=== PATIENT | male | born 1955 | race Caucasian/White ===

== ENCOUNTER 2020-06-08 16:50 | Emergency (ER) | payer BC, MEDICARE ==
[2020-06-08 17:03] VITALS: BP 128/67; PULSE 72
--- NOTE | 2020-06-08 17:16 | EDM.PDOC ---
ED HPI GENERAL MEDICAL PROBLEM - General Chief Complaint: Upper Extremity Injury/Pain Stated Complaint: NAIL IN RT HAND Time Seen by Provider: 06/08/20 17:05 Source of Information: Reports: Patient, Family History Limitations: Reports: No Limitations - History of Present Illness INITIAL COMMENTS - FREE TEXT/NARRATIVE: 64-year-old male had a puncture wound in the right palm yesterday with a small nail. He cleaned it, put some topical antibiotic on the hand, but overnight he developed a throbbing pain extending up the middle finger and even up the wrist partially. There is also swelling, but no fever or chills. No significant erythema. Onset: Gradual Duration: Hour(s): (The inflammation and pain has gradually worsened over the past 12 hours) Location: Reports: Upper Extremity, Right Associated Symptoms: Reports: No Other Symptoms Right Hand Pain Score (Numeric/FACES): 8 - Related Data Allergies Allergy/AdvReac Type Severity Reaction Status Date / Time No Known Allergies Allergy Verified 06/08/20 17:03 Home Meds: Home Meds Pantoprazole Sodium 40 mg PO DAILY 02/02/14 [History] Verapamil HCl [Verapamil Sr] 180 mg PO DAILY 02/02/14 [History] Sucralfate [Carafate] 1 gm PO ASDIRECTED 12/15/15 [History] Naproxen [Naprosyn] 500 mg PO BID 05/02/18 [History] Past Medical History HEENT History: Reports: Impaired Vision Other HEENT History: sinus pasty Cardiovascular History: Reports: None Respiratory History: Reports: None Gastrointestinal History: Reports: GERD Genitourinary History: Reports: None Musculoskeletal History: Reports: Other (See Below) Other Musculoskeletal History: bilateral hip pain Neurological History: Reports: Migraines Psychiatric History: Reports: None Endocrine/Metabolic History: Reports: None Hematologic History: Reports: None Immunologic History: Reports: None Oncologic (Cancer) History: Reports: None Dermatologic History: Reports: Other (See Below) Other Dermatologic History: laceration L leg today chainsaw - Infectious Disease History Infectious Disease History: Reports: Chicken Pox, MRSA - Past Surgical History Head Surgeries/Procedures: Reports: None HEENT Surgical History: Reports: None Cardiovascular Surgical History: Reports: None GI Surgical History: Reports: Hernia, Abdominal Neurological Surgical History: Reports: None Musculoskeletal Surgical History: Reports: Hip Replacement, Shoulder Surgery Other Musculoskeletal Surgeries/Procedures:: r ankle tiera 2011. left hip replacement 2014. LT RCR 07/05/18 Dermatological Surgical History: Reports: None Social & Family History - Tobacco Use Tobacco Use Status *Q: Never Tobacco User - Caffeine Use Caffeine Use: Reports: Coffee - Recreational Drug Use Recreational Drug Use: No - Living Situation & Occupation Living situation: Reports: , with Spouse Occupation: Employed Review of Systems - Review of Systems Review Of Systems: See Below Constitutional: Denies: Fever Respiratory: Denies: Shortness of Breath Skin: Denies: Erythema Neurological: Denies: Paresthesia ED EXAM, GENERAL - Physical Exam Exam: See Below Exam Limited By: No Limitations General Appearance: Alert, No Apparent Distress Respiratory/Chest: No Respiratory Distress Extremities: Other (Exam is otherwise limited to the right hand. There is a tiny dry puncture wound in the center of the palm at the base of the middle finger. There is some moderate swelling around the wound extending along the palmar surface of the middle finger but no erythema or fluctuance, no warmth.) Course - Vital Signs Last Recorded V/S: Last Vital Signs Temp 98.0 F 06/08/20 17:01 Pulse 72 06/08/20 17:01 Resp 16 06/08/20 17:01 BP 128/67 06/08/20 17:01 Pulse Ox 96 06/08/20 17:01 - Re-Assessments/Exams Free Text/Narrative Re-Assessment/Exam: 06/08/20 17:15 Patient will be covered with Augmentin 875 mg twice daily for at least 7 days, increase activity with the head as tolerated and recheck in 2 to 3 days if not improving significantly. Continue with anti-inflammatories as needed for pain. Departure - Departure Time of Disposition: 17:17 Disposition: Home, Self-Care 01 Clinical Impression: Cellulitis of hand, right - Discharge Information Instructions: Cellulitis, Adult Referrals: Damian Escalante MD [Primary Care Provider] - Forms: ED Department Discharge Care Plan Goals: Take 1 dose of Augmentin twice daily for at least 7 days, increase activity with the right hand as tolerated and consider rechecking in 2 to 3 days if not improving significantly. Return sooner if worsening such as increased swelling, redness, warmth or fever. Sepsis Event Note (ED) - Evaluation Sepsis Screening Result: No Definite Risk
== END 2020-06-08 17:21 | disposition home or self-care (01) ==
LOC: JP.ED 16:50
DX: L03.113 Cellulitis of right upper limb (principal); K21.9 Gastro-esophageal reflux disease without esophagitis; Z79.899 Other long term (current) drug therapy
CPT/HCPCS: 99283

== ENCOUNTER 2021-01-01 08:30 | Day surgery (SDC) | payer BC ==
[~2021-01-01 08:30] MED LIST: Midazolam 1 MG/ML 2 ML SDV ONE; Propofol 200 MG/20 ML SDV ONE; fentaNYL 100 MCG/2 ML SDV ONE
[2021-01-01] MEDS: Sodium Chloride 0.9% 1,000 ML IV SCH (09:32)
[2021-01-01 11:55] VITALS: BP 111/60; PULSE 64
--- NOTE | 2021-01-02 08:24 | OR ---
DATE OF PROCEDURE: 01/01/2021 SURGEON: Fox Tuttle MD PROCEDURES: 1. Esophagogastroduodenoscopy. 2. Colonoscopy. FINDINGS: 1. Mild inflammation at the GE junction concerning for reflux disease (biopsied using cold biopsy forceps). 2. Poor colon prep. COMPLICATIONS: None. COMPENSATION ASSOCIATE: None. ANESTHESIA: MAC. PREOPERATIVE DIAGNOSES: 1. History of George's esophagus. 2. Screening colonoscopy. POSTOPERATIVE DIAGNOSES: 1. History of George's esophagus. 2. Screening colonoscopy. RISKS: Risks, benefits, alternatives, and limitations including, but not limited to infection, bleeding, perforation, false positives and false negatives were explained to the patient and he wished to proceed. PROCEDURE IN DETAIL: The patient was placed in left lateral decubitus position. The EGD scope was introduced and advanced atraumatically to the second part of the duodenum. No evidence of duodenitis or ulceration. Within the stomach itself, there was no evidence of gastritis. At the GE junction, there was mild inflammation concerning for reflux disease. This was biopsied in all 4 quadrants using cold biopsy forceps. Remainder of the esophagus was inspected without abnormality. Digital rectal exam was performed next. The scope was introduced and advanced atraumatically to the ileocecal valve. The scope was brought back to the ascending, transverse, descending colon, and retroflexed, but there was a large amount of solid and liquid stool. The mucosal surface that could be seen would be less than 40%, thus precluding an adequate visualization. No abnormalities on retroflexion. The patient tolerated the procedure well. The patient will be scheduled for repeat colonoscopy. Fox Tuttle MD /[id number]
== END 2021-01-01 12:00 | disposition home or self-care (01) ==
LOC: JP.SDS 08:30
PROVIDERS: ATTEND Surgery
DX: Z12.11 Encounter for screening for malignant neoplasm of colon (principal); K21.9 Gastro-esophageal reflux disease without esophagitis; G47.33 Obstructive sleep apnea (adult) (pediatric); I25.2 Old myocardial infarction
CPT/HCPCS: 88305; J2250; J2704; J3010; J7030

== ENCOUNTER 2021-01-05 06:56 | Day surgery (SDC) | payer BC ==
[2021-01-05] MEDS ORDERED: Propofol 200 MG/20 ML SDV ONE (07:23)
[2021-01-05] MEDS ORDERED: fentaNYL 100 MCG/2 ML SDV ONE (07:23)
[2021-01-05] MEDS ORDERED: Midazolam 1 MG/ML 2 ML SDV ONE (07:23)
[2021-01-05] MEDS ORDERED: Sodium Chloride 0.9% 1,000 ML IV SCH (07:30)
[2021-01-05 09:35] VITALS: BP 123/58; PULSE 65
--- NOTE | 2021-01-05 11:11 | OR ---
DATE OF PROCEDURE: 01/05/2021 SURGEON: Fox Tuttle MD PROCEDURE: Colonoscopy. FINDINGS: Poor colon prep. COMPLICATIONS: None. RACE RELATIONS ADVISER: None. RISKS: Risks, benefits, alternatives, and limitations including, but not limited to infection, bleeding, perforation, false positives, false negatives were explained to the patient and he wished to proceed. PROCEDURE IN DETAIL: The patient was placed in left lateral decubitus position. Digital rectal exam was performed without abnormality. Scope was introduced and advanced atraumatically to the ileocecal valve. A photo was taken of the appendiceal orifice. Scope was brought back to the ascending, transverse, descending colon, and retroflexed. No evidence of old or new blood. No masses. No polyps. The prep was poor with approximately 80% of the luminal surface could be seen. This was not enough to completely see polyps less than 6 mm. Solid and liquid stool remained. No abnormalities on retroflexion. Greater than 8 minutes was spent removing the scope. The patient and family will again be counseled on recommendations with respect to colonoscopy. Fox Tuttle MD /[id number]
== END 2021-01-05 09:40 | disposition home or self-care (01) ==
LOC: JP.SDS 06:56
PROVIDERS: ATTEND Surgery
DX: Z12.11 Encounter for screening for malignant neoplasm of colon (principal); E66.9 Obesity, unspecified
CPT/HCPCS: 45378; J2250; J2704; J3010; J7030

== ENCOUNTER 2021-07-07 07:02 | Day surgery (SDC) | payer BC ==
[2021-07-07] MEDS ORDERED: Midazolam 1 MG/ML 2 ML SDV ONE (07:11)
[2021-07-07] MEDS ORDERED: fentaNYL 100 MCG/2 ML SDV ONE (07:11)
[2021-07-07] MEDS ORDERED: Propofol 200 MG/20 ML SDV ONE (07:11)
[2021-07-07] MEDS ORDERED: Sodium Chloride 0.9% 1,000 ML IV SCH (07:30)
[2021-07-07 09:27] VITALS: BP 121/69; PULSE 73
== END 2021-07-07 09:30 | disposition home or self-care (01) ==
LOC: JP.SDS 07:02
PROVIDERS: ATTEND Surgery
DX: Z12.11 Encounter for screening for malignant neoplasm of colon (principal); I25.2 Old myocardial infarction
CPT/HCPCS: J2250; J2704; J3010; J7030